=== PATIENT | male | born 1970 | race Hispanic/Latino ===

== ENCOUNTER 2017-03-01 22:36 | Emergency (ER) | payer MEDICARE ==
[2017-03-01 22:45] VITALS: BMI 20.3
--- NOTE | 2017-03-01 23:20 | ED PDOC ---
Arrival/HPI - General Historian: Patient EM Caveat: Acuity of Condition - History of Present Illness Time/Duration: Prior to Arrival Symptom Onset: Other (chronic) Symptom Course: Unchanged <JERROD LARSON - Last Filed: 03/02/17 04:29> <Braeden Alvarez - Last Filed: 03/02/17 07:00> - General Chief Complaint: Psychiatric Evaluation Time Seen by Provider: 03/01/17 22:53 - History of Present Illness Narrative History of Present Illness (Text): PMH delusional disorder, paranoid schizophrenia, depression, [place] [facility] [place] with complaints of excess fatigue for duration of years. Patient states that while he was asleep he was awoken by his sister and EMS; as per patient, since he lives with his parents, his sister regularly visits. Today while visiting she called the police while for him to be admitted to the hospital. Patient states there was no precipitating event leading to his sister calling the police. Patient denies any altercation with sister or parents prior to going to bed. Patient states that he follows monthly with his psychiatrist and his next appointment is tomorrow 03/02. Patient denies chest pain, sob, n/v/d, headache, dizziness. Patient admits to marijuana use daily, denies alcohol consumption. 03/01/17 23:17 (JERROD LARSON) Past Medical History - Provider Review Nursing Documentation Reviewed: Yes - Infectious Disease Hx of Infectious Diseases: None - Tetanus Immunization Tetanus Immunization: Unknown - Cardiac Hx Cardiac Disorders: No - Pulmonary Hx Respiratory Disorders: No - Neurological Hx Neurological Disorder: No - HEENT Hx HEENT Disorder: No - Renal Hx Renal Disorder: No - Endocrine/Metabolic Hx Endocrine Disorders: No - Hematological/Oncological Hx Blood Disorders: No - Integumentary Hx Dermatological Disorder: No - Musculoskeletal/Rheumatological Hx Falls: Yes (fell 08/2014 and hit head, laceration to left ear) - Gastrointestinal Hx Gastrointestinal Disorders: No - Genitourinary/Gynecological Hx Genitourinary Disorders: No - Psychiatric Hx Psychophysiologic Disorder: Yes Hx Bipolar Disorder: Yes Hx Schizophrenia: Yes Hx Substance Use: Yes (marijuana) - Past Surgical History Past Surgical History: No Previous - Anesthesia Hx Anesthesia Reactions: No Hx Malignant Hyperthermia: No - Suicidal Assessment Feels Threatened In Home Enviroment: No <JERROD LARSON - Last Filed: 03/02/17 04:29> Family/Social History Family/Social History: No Known Family HX Smoking Status: Heavy Smoker > 10 Cigarettes Daily Hx Alcohol Use: No Hx Substance Use: Yes (marijuana) Substance used: Marijuana Route: Smoking/Inhalation Hx Substance Use Treatment: No <LARSONJERROD - Last Filed: 03/02/17 04:29> Allergies/Home Meds <JERROD LARSON - Last Filed: 03/02/17 04:29> <Braeden Alvarez - Last Filed: 03/02/17 07:00> Allergies/Adverse Reactions: Allergies No Known Allergies Allergy (Verified 12/03/15 13:09) Home Medications: Home Meds Medication Instructions Recorded Confirmed Diclofenac Sodium [Voltaren] 50 mg PO TID PRN 12/03/15 03/02/17 Haloperidol 10 mg PO BID 12/03/15 03/02/17 Levocetirizine Dihydrochloride 5 mg PO DAILY 12/03/15 03/02/17 [Xyzal] Tizanidine HCl [Zanaflex Capsule] 4 mg PO TID 12/03/15 03/02/17 Review of Systems - Review of Systems Systems not reviewed;Unavailable: Acuity of Condition Constitutional: Normal Eyes: Normal ENT: Normal Respiratory: Normal Cardiovascular: Normal Gastrointestinal: Normal Genitourinary Male: Normal Musculoskeletal: Normal Skin: Normal Neurological: Normal Endocrine: Normal Hemo/Lymphatic: Normal Psychiatric: Normal <JERROD LARSON - Last Filed: 03/02/17 04:29> Physical Exam - Physical Exam Physical Exam Limitations: Clinical Condition Temperature: Afebrile Blood Pressure: Normal Pulse: Regular Respiratory Rate: Normal Appearance: Positive for: Well-Appearing Pain Distress: None Mental Status: Positive for: Alert and Oriented X 3 - Systems Exam Head: Present: Atraumatic, Normocephalic Extroacular Muscles: Present: EOMI Conjunctiva: Present: Normal Mouth: Present: Moist Mucous Membranes Respiratory/Chest: Present: Clear to Auscultation, Good Air Exchange. No: Accessory Muscle Use Cardiovascular: Present: Regular Rate and Rhythm, Normal S1, S2 Abdomen: Present: Normal Bowel Sounds. No: Tenderness, Distention Neurological: Present: CN II-XII Intact Psychiatric: Present: Alert, Oriented x 3 <JERROD LARSON - Last Filed: 03/02/17 04:29> Medical Decision Making <JERROD LARSON - Last Filed: 03/02/17 04:29> - Transfer of Care [place] Dr[place] [facility] [place]Braeden Alvarez - Last Filed: 03/02/17 07:00> ED Course and Treatment: 1. 46 year old male with extensive psych history presenting with complaints of fatigue -Alcohol serum levels -Urinalysis and Urine drug screen -EKG -CXR -CBC and CMP ordered - Will be transferred to [facility] [place], currently awaiting bed 03/01/17 23:23 03/02/17 04:30 (JERROD LARSON) Impression: Pt seen and evaluated with medical scientific officer. Pt, whose past medical history includes delusional disorder, paranoid schizophrenia, and depression, presented complaining of fatigue for the past few years. Aware and agree with HPI, clinical findings, plan, and management. Plan: -- EKG -- CXR -- Labs, alcohol level -- Urinalysis, urine drug screen -- Reassess and disposition 03/01/17 23:44 Pt seen and evaluated by PES screener Mary, Pt will require [facility] screening. 03/02/17 04:40 [facility] PES screener evaluated pt. Pt accepted on transfer to [facility] [place], pending bed availability. (Braeden Alvarez) - Lab Interpretations Lab Results: 03/01/17 23:17 03/01/17 23:17 Lab Results 03/01/17 23:25: Urine Opiates Screen Negative, Urine Methadone Screen Negative, Ur Barbiturates Screen Negative, Ur Phencyclidine Scrn Negative, Ur Amphetamines Screen Positive H, U Benzodiazepines Scrn Negative, U Oth Cocaine Metabols Negative, U Cannabinoids Screen Positive H 03/01/17 23:25: Urine Color Yellow, Urine Appearance Clear, Urine pH 6.5, Ur Specific [place] 1.010, Urine Protein Negative, Urine Glucose (UA) Negative, Urine Ketones Negative, Urine Blood Negative, Urine Nitrate Negative, Urine Bilirubin Negative, Urine Urobilinogen 0.2, Ur Leukocyte Esterase Negative 03/01/17 23:17: Alcohol, Quantitative < 10 03/01/17 23:17: Salicylates < 1 L, Acetaminophen < 10.0 L 03/01/17 23:17: Sodium 141, Potassium 4.1, Chloride 101, Carbon Dioxide 28, Anion Gap 16, BUN 10, Creatinine 0.9, Est GFR ( Amer) > 60, Est GFR (Non- Af Amer) > 60, Random Glucose 115 H, Calcium 9.8, Total Bilirubin 0.6, AST 22, ALT 22, Alkaline Phosphatase 91, Total Protein 8.3, Albumin 4.6, Globulin 3.7, Albumin/Globulin Ratio 1.2 03/01/17 23:17: WBC 12.0 H, RBC 5.40, Hgb 15.6, Hct 44.1, MCV 81.7, MCH 28.9, MCHC 35.4, RDW 13.6, Plt Count 375, MPV 9.6, Gran % 49.4 L, Lymph % (Auto) 40.5 H, [place] % (Auto) 7.6 H, Eos % (Auto) 2.2, Baso % (Auto) 0.3, Gran # 5.93, Lymph # 4.9 H, [place] # 0.9 H, Eos # 0.3, Baso # 0.03 - RAD Interpretation Radiology Orders: 03/01/17 22:59 CHEST PORTABLE [RAD] Stat - PA / [facility] / Resident Statement MD/DO has examined the patient and agrees with the treatment plan. <Braeden Alvarez - Last Filed: 03/02/17 07:00> Disposition/Present on Arrival - Present on Arrival Any Indicators Present on Arrival: No History of DVT/PE: No History of Uncontrolled Diabetes: No Urinary Catheter: No History of Decub. Ulcer: No History Surgical Site Infection Following: None - Disposition Have Diagnosis and Disposition been Completed?: Yes Disposition Time: 04:42 <JERROD LARSON - Last Filed: 03/02/17 04:29> - Present on Arrival Any Indicators Present on Arrival: No - Disposition Have Diagnosis and Disposition been Completed?: Yes <Braeden Alvarez - Last Filed: 03/02/17 07:00> - Disposition Diagnosis: Psychiatric care Disposition: Transfer [facility] Patient Problems: Current Active Problems Problem Status Onset Psychiatric care Acute Condition: FAIR Additional Instructions: chest xray neg pt is medically stable for admission and transfer Forms: [employer] (Thai)
[2017-03-01 23:39] LABS: BASO # 0.03 K/mm3 (0.0-2.0); BASO % 0.3 % (0.0-3.0); EOS # 0.3 (0.0-0.7); EOS % 2.2 % (1.5-5.0); GRAN # 5.93 (1.4-6.5); GRAN % 49.4 % (50.0-68.0); HEMATOCRIT 44.1 % (42.0-52.0); LYMPH # 4.9 (1.2-3.4); LYMPH % 40.5 % (22.0-35.0); MEAN CELL VOLUME 81.7 fl (80.0-105.0); MEAN CORPUSCULAR HEMOGLOBIN 28.9 pg (25.0-35.0); MEAN CORPUSCULAR HGB CONC 35.4 g/dl (31.0-37.0); MEAN PLATELET VOLUME 9.6 fl (7.0-11.0); MONO # 0.9 (0.1-0.6); MONO % 7.6 % (1.0-6.0); RED CELL DISTRIBUTION WIDTH 13.6 % (11.5-14.5)
[2017-03-01 23:40] LABS: PH,URINE 6.5 (4.7-8.0); URINE BILIRUBIN NEGATIVE (NEGATIVE); URINE BLOOD NEGATIVE (NEGATIVE); URINE GLUCOSE (UA) NEGATIVE (NEGATIVE); URINE KETONE NEGATIVE (NEGATIVE); URINE LEUKOCYTE ESTERASE NEGATIVE Leu/uL (NEGATIVE); URINE PROTEIN NEGATIVE mg/dL (<30 mg/dL); URINE UROBILINOGEN 0.2 E.U./dL (<1 E.U./dL)
[2017-03-01 23:44] LABS: ALB/GLOB RATIO 1.2 (1.1-1.8); ALKALINE PHOSPHATASE 91 U/L (38-133); ALT/SGPT 22 U/L (7-56); AST/SGOT 22 U/L (15-59); BILIRUBIN,TOTAL 0.6 mg/dL (0.2-1.3); BLOOD UREA NITROGEN 10 mg/dL (7-21); CALCIUM 9.8 mg/dL (8.4-10.5); CARBON DIOXIDE 28 mmol/L (21-33); CHLORIDE 101 mmol/L (95-110); GFR AFRICAN-AMERICAN > 60; GLUCOSE,RANDOM 115 mg/dL (70-110); POTASSIUM 4.1 mmol/L (3.6-5.0); SODIUM 141 mmol/L (132-148); TOTAL PROTEIN 8.3 g/dL (5.8-8.3)
[2017-03-01 23:45] LABS: URINE APPEARANCE CLEAR (CLEAR); URINE COLOR YELLOW (YELLOW)
--- NOTE | 2017-03-02 08:56 | RAD ---
HISTORY: pes COMPARISON: 12/03/2015 FINDINGS: LUNGS: No active pulmonary disease. PLEURA: No significant pleural effusion identified, no pneumothorax apparent. CARDIOVASCULAR: Normal. OSSEOUS STRUCTURES: No significant abnormalities. VISUALIZED UPPER ABDOMEN: Normal. OTHER FINDINGS: None. IMPRESSION: No active disease.
--- NOTE | 2017-03-02 09:45 | CARD ---
APPROVED REPORT EKG Measurement Heart [id number] <Conclusion> Normal sinus rhythm Incomplete right bundle branch block Borderline ECG
--- NOTE | 2017-03-02 13:30 | ED PDOC ---
Physical Exam Vital Signs Temp Pulse Resp BP Pulse Ox 03/02/17 08:11 97.3 F L 76 16 117/75 98 03/02/17 05:10 91 H 16 122/47 L 96 03/02/17 01:24 93 H 16 126/71 99 03/01/17 23:46 92 H 16 126/83 97 03/01/17 22:51 97.9 F 100 H 18 145/102 H 97 Medical Decision Making ED Course and Treatment: 03/02/17 07:00 Patient signed out to me by Dr. Coleman. [place] [facility] [place]. 03/03/17 10:21 pt endorsed to ngiht shift, pending arrival of ambulance for transfer - Lab Interpretations Lab Results: 03/01/17 23:17 03/01/17 23:17 Lab Results 03/01/17 23:25: Urine Opiates Screen Negative, Urine Methadone Screen Negative, Ur Barbiturates Screen Negative, Ur Phencyclidine Scrn Negative, Ur Amphetamines Screen Positive H, U Benzodiazepines Scrn Negative, U Oth Cocaine Metabols Negative, U Cannabinoids Screen Positive H 03/01/17 23:25: Urine Color Yellow, Urine Appearance Clear, Urine pH 6.5, Ur Specific [place] 1.010, Urine Protein Negative, Urine Glucose (UA) Negative, Urine Ketones Negative, Urine Blood Negative, Urine Nitrate Negative, Urine Bilirubin Negative, Urine Urobilinogen 0.2, Ur Leukocyte Esterase Negative 03/01/17 23:17: Alcohol, Quantitative < 10 03/01/17 23:17: Salicylates < 1 L, Acetaminophen < 10.0 L 03/01/17 23:17: Sodium 141, Potassium 4.1, Chloride 101, Carbon Dioxide 28, Anion Gap 16, BUN 10, Creatinine 0.9, Est GFR ( Amer) > 60, Est GFR (Non- Af Amer) > 60, Random Glucose 115 H, Calcium 9.8, Total Bilirubin 0.6, AST 22, ALT 22, Alkaline Phosphatase 91, Total Protein 8.3, Albumin 4.6, Globulin 3.7, Albumin/Globulin Ratio 1.2 03/01/17 23:17: WBC 12.0 H, RBC 5.40, Hgb 15.6, Hct 44.1, MCV 81.7, MCH 28.9, MCHC 35.4, RDW 13.6, Plt Count 375, MPV 9.6, Gran % 49.4 L, Lymph % (Auto) 40.5 H, [place] % (Auto) 7.6 H, Eos % (Auto) 2.2, Baso % (Auto) 0.3, Gran # 5.93, Lymph # 4.9 H, [place] # 0.9 H, Eos # 0.3, Baso # 0.03 - RAD Interpretation Radiology Orders: 03/01/17 22:59 CHEST PORTABLE [RAD] Stat - Medication Orders Current Medication Orders: Benztropine Mesylate (Cogentin) 0.5 mg PO TID STEPHANE Last Admin: 03/02/17 11:14 Dose: 0.5 mg Haloperidol (Haldol) 5 mg PO TID STEPHANE PRN Reason: Protocol Last Admin: 03/02/17 11:14 Dose: 5 mg Trazodone HCl (Desyrel) 50 mg PO HS PRN PRN Reason: Insomnia - Scribe Statement The provider has reviewed the documentation as recorded by the Adrian Romero Provider Scribe Attestation: All medical record entries made by the Scribe were at my direction and personally dictated by me. I have reviewed the chart and agree that the record accurately reflects my personal performance of the history, physical exam, medical decision making, and the department course for this patient. I have also personally directed, reviewed, and agree with the discharge instructions and disposition. Disposition/Present on Arrival - Present on Arrival Any Indicators Present on Arrival: No History of DVT/PE: No History of Uncontrolled Diabetes: No Urinary Catheter: No History of Decub. Ulcer: No History Surgical Site Infection Following: None - Disposition Have Diagnosis and Disposition been Completed?: Yes Diagnosis: Schizophrenia Disposition: [place] [facility] [place] Time: 07:00 Condition: FAIR Additional Instructions: chest xray neg pt is medically stable for admission and transfer Forms: [employer] (Lebanese)
[2017-03-02 16:23] VITALS: TEMP 99.2
[2017-03-02 19:13] VITALS: BP 110/78; PULSE 68; RESP 18; O2SAT 97
--- NOTE | 2017-03-03 02:39 | CON ---
HISTORY OF PRESENT ILLNESS: The patient is a 46-year-old male with a reported history of paranoid schizophrenia. The patient also has history of noncompliance with medication and followup appointments. The patient was brought in by his family because the patient was having negative symptoms because of schizophrenia, was withdrawn, not eating and not taking his medication. Case was discussed with Dr. Murrell, the patient's private psychiatrist and it was recommended screening. [facility] evaluated the patient in the emergency room. At the present moment, the patient is waiting for bed to be available at [facility] under involuntary commitment. The patient was seen and examined today. The patient presented withdrawn, poor personal hygiene, and oddly related to this curriculum writer. The patient says he is not taking his medications. He has a lot of somatic complaints for what patient's family was concerned. At present moment, the patient reported that he has auditory hallucinations. The patient was trying to minimize his symptoms. The patient has had multiple admissions to the psychiatric inpatient unit here at [place], as well as [facility]. Most recent in this facility was in December [address] Murrell's services. The patient was stabilized on haloperidol 10 mg twice a day and trazodone 50 mg at nighttime. The patient was submitted a 48-hour notice and was discharged against medical advice. PHYSICAL EXAMINATION VITAL SIGNS: Reviewed. Temperature is 97.3, pulse is 76, blood pressure 117/75, respirations 16, oxygen saturation is 98. MEDICATIONS: Reviewed. None was given to the patient, but this curriculum writer will resume Cogentin 0.5 mg three times a day, Haldol 5 mg three times a day, and trazodone 50 mg at the nighttime as needed for insomnia. LABORATORY DATA: Reviewed. WBC 12.0, granulocytes are 5.93. Chemistry is reviewed. Urine is reviewed. Toxicology was positive for amphetamines, as well as cannabis. On amphetamines, the patient was not able to provide history if he is taking any stimulants or not, but admitted that he was smoking cannabis on a daily basis. Case was discussed with emergency room physician Dr. Lagunas, as well as nurse, Viky. The patient is currently on one-to-one. MENTAL STATUS EXAMINATION: The patient appears to be alert, withdrawn, poor personal hygiene, staring at this curriculum writer, inappropriate smile. Mood is described as "fine, I want to go home". Affect was constricted, but reactive, mood incongruent. Thought process disorganized. Thought content: The patient reported to have auditory hallucinations, denied command-type hallucinations. The patient was not eating and has negative symptoms of schizophrenia. Insight and judgment are impaired. Impulses are well controlled. IMPRESSION: Per history, the patient has paranoid schizophrenia, chronic, with acute exacerbation. PLAN: At the present moment, the patient is waiting for bed to be available at [facility] and meanwhile, while the patient will be in the emergency room, this curriculum writer will resume medications of haloperidol 5 mg three times a day, Cogentin 0.5 mg three times a day for EPS, trazodone 50 mg at the nighttime as needed for insomnia. All of the medications the patient has tolerated well in the past and willing to take now. Staff was educated to make sure that the patient eats. Meanwhile, the patient will be seen by this curriculum writer on a daily basis and advise accordingly. Thank you very much for letting me to participate in the care of your patient. Krystal Lindo MD
== END 2017-03-02 19:33 | disposition short-term general hospital (02) ==
LOC: ED 22:36
DX: Z00.8 Encounter for other general examination (principal); F20.0 Paranoid schizophrenia
CPT/HCPCS: 71010; 80053; 81003; 85025; 90791; 93005; 99285; G0480

== ENCOUNTER 2017-06-09 13:04 | Emergency (ER) | payer MEDICARE ==
[2017-06-09 13:04] VITALS: BMI 20.3
--- NOTE | 2017-06-09 13:13 | ED PDOC ---
Arrival/HPI - General Historian: Patient - History of Present Illness Time/Duration: Prior to Arrival Context: Home <Raffaele Duran - Last Filed: 06/09/17 17:49> <Fredy Patel - Last Filed: 06/10/17 03:45> - General Time Seen by Provider: 06/09/17 13:13 - History of Present Illness Narrative History of Present Illness (Text): 06/09/17 13:13 This 46 yo male PMH delusional disorder, paranoid schizophrenia, depression, presents to [facility] ED for PES evaluation. 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 Her sister is claiming he was destroying the apartment. He denies that allegation. He denies other somatic complains, although he admits hearing voices, last time was 2 days ago, and he take an injection every 3 weeks to manage that. (Raffaele Duran) Past Medical History - Provider Review Nursing Documentation Reviewed: Yes - Infectious Disease Hx of Infectious Diseases: None - Tetanus Immunization Tetanus Immunization: Unknown - Cardiac Hx Cardiac Disorders: No - Pulmonary Hx Respiratory Disorders: No - Neurological Hx Neurological Disorder: No - HEENT Hx HEENT Disorder: No - Renal Hx Renal Disorder: No - Endocrine/Metabolic Hx Endocrine Disorders: No - Hematological/Oncological Hx Blood Disorders: No - Integumentary Hx Dermatological Disorder: No - Musculoskeletal/Rheumatological Hx Falls: Yes (fell 08/2014 and hit head, laceration to left ear) - Gastrointestinal Hx Gastrointestinal Disorders: No - Genitourinary/Gynecological Hx Genitourinary Disorders: No - Psychiatric Hx Psychophysiologic Disorder: Yes Hx Bipolar Disorder: Yes Hx Schizophrenia: Yes Hx Substance Use: Yes (marijuana) - Past Surgical History Past Surgical History: No Previous - Anesthesia Hx Anesthesia Reactions: No Hx Malignant Hyperthermia: No - Suicidal Assessment Feels Threatened In Home Enviroment: No <Raffaele Duran - Last Filed: 06/09/17 17:49> Family/Social History - Physician Review Nursing Documentation Reviewed: Yes Family/Social History: Other (noncontributory) Smoking Status: Heavy Smoker > 10 Cigarettes Daily Hx Alcohol Use: No Hx Substance Use: Yes (marijuana) Substance used: Marijuana Hx Substance Use Treatment: No <Raffaele Duran - Last Filed: 06/09/17 17:49> Allergies/Home Meds <Raffaele Duran - Last Filed: 06/09/17 17:49> <AmandaFredy - Last Filed: 06/10/17 03:45> Allergies/Adverse Reactions: Allergies No Known Allergies Allergy (Verified 06/09/17 13:15) Home Medications: Home Meds Medication Instructions Recorded Confirmed Unobtainable 06/09/17 06/09/17 Review of Systems - Review of Systems Constitutional: Normal. absent: Fatigue, Weight Change, Fevers Eyes: Normal ENT: Normal Respiratory: Normal Cardiovascular: Normal Gastrointestinal: Normal Genitourinary Male: Normal Musculoskeletal: Normal Skin: Normal Neurological: Normal Endocrine: Normal Hemo/Lymphatic: Normal Psychiatric: Anxiety, Other (see hpi). absent: Depression, Suicidal Ideation <Raffaele Duran - Last Filed: 06/09/17 17:49> Physical Exam Temperature: Afebrile Blood Pressure: Normal Pulse: Regular Respiratory Rate: Normal Appearance: Positive for: Well-Appearing, Non-Toxic, Comfortable Pain Distress: None Mental Status: Positive for: Alert and Oriented X 3 - Systems Exam Head: Present: Atraumatic, Normocephalic Pupils: Present: PERRL Extroacular Muscles: Present: EOMI Conjunctiva: Present: Normal Mouth: Present: Moist Mucous Membranes Neck: Present: Normal Range of Motion Respiratory/Chest: Present: Clear to Auscultation, Good Air Exchange. No: Respiratory Distress, Accessory Muscle Use Cardiovascular: Present: Regular Rate and Rhythm, Normal S1, S2. No: Murmurs Abdomen: Present: Normal Bowel Sounds. No: Tenderness, Distention, Peritoneal Signs Back: Present: Normal Inspection Upper Extremity: Present: Normal Inspection. No: Cyanosis, Edema Lower Extremity: Present: Normal Inspection. No: Edema Neurological: Present: GCS=15, CN II-XII Intact, Speech Normal Skin: Present: Warm, Dry, Normal Color. No: Rashes Psychiatric: Present: Alert, Oriented x 3, Hallucinations (auditory). No: Suicidal Ideation, Homicidal Ideation, Delusional, Intoxicated <Raffaele Duran - Last Filed: 06/09/17 17:49> Vital Signs Temp Pulse Resp BP Pulse Ox 06/10/17 02:00 98.2 F 84 18 126/72 99 06/10/17 00:00 88 16 124/72 100 06/09/17 22:00 80 14 114/68 99 06/09/17 20:00 86 06/09/17 18:57 88 18 118/86 100 06/09/17 15:34 89 18 121/74 100 06/09/17 13:04 98.8 F 100 H 19 119/87 99 Medical Decision Making - EKG Interpretation Interpreted by ED Physician: Yes (Sinus Tachycardia @ [address] changes.) Type: 12 lead EKG Comparison: No previous EKG avail. <Raffaele Duran - Last Filed: 06/09/17 17:49> <Fredy Patel - Last Filed: 06/10/17 03:45> ED Course and Treatment: 06/09/17 16:49 Charla from PES stated she spoke with psychiatrist, and they feel patient needs to be committed at [facility]. Patient is medically clear for Psychiatric admission. (Raffaele Duran) 06/10/17 03:42 Pt seen and evaluated by [facility] PES screener, who discussed case with psychiatrist. Pt accepted on transfer to [facility] by Dr. Cates. (Fredy Patel) - Lab Interpretations Lab Results: 06/09/17 13:23 06/09/17 13:23 Lab Results 06/09/17 15:57: Urine Opiates Screen Negative, Urine Methadone Screen Negative, Ur Barbiturates Screen Negative, Ur Phencyclidine Scrn Negative, Ur Amphetamines Screen Positive H, U Benzodiazepines Scrn Negative, U Oth Cocaine Metabols Negative, U Cannabinoids Screen Positive H 06/09/17 15:15: Urine Color Yellow, Urine Appearance Clear, Urine pH 6.0, Ur Specific [place] 1.020, Urine Protein 100 H, Urine Glucose (UA) Negative, Urine Ketones Negative, Urine Blood Negative, Urine Nitrate Negative, Urine Bilirubin Negative, Urine Urobilinogen 0.2, Ur Leukocyte Esterase Negative, Urine RBC 0 - 2, Urine WBC 1 - 3, Ur Epithelial Cells 0 - 2, Amorphous Sediment Few, Urine Bacteria Many, Hyaline Casts 2 - 5, Fine Granular Casts 2 - 5, Coarse Granular Casts Trace H, Urine Other Uyeast 06/09/17 13:23: Alcohol, Quantitative < 10 06/09/17 13:23: Salicylates < 1 L, Acetaminophen < 10.0 L 06/09/17 13:23: Sodium 139, Potassium 3.6, Chloride 101, Carbon Dioxide 28, Anion Gap 15, BUN 13, Creatinine 1.0, Est GFR ( Amer) > 60, Est GFR (Non- Af Amer) > 60, Random Glucose 121 H, Calcium 10.0, Total Bilirubin 0.3, AST 22, ALT 21, Alkaline Phosphatase 74, Total Protein 8.4 H, Albumin 4.3, Globulin 4.1 , Albumin/Globulin Ratio 1.1 06/09/17 13:23: WBC 10.3, RBC 5.46, Hgb 15.7, Hct 45.6, MCV 83.5, MCH 28.8, MCHC 34.4, RDW 14.9 H, Plt Count 334, MPV 9.6, Gran % 33.3 L, Lymph % (Auto) 53.6 H, [place] % (Auto) 9.4 H, Eos % (Auto) 3.4, Baso % (Auto) 0.3, Gran # 3.43, Lymph # 5.5 H, [place] # 1.0 H, Eos # 0.4, Baso # 0.03 - RAD Interpretation Narrative RAD Interpretations (Text): 06/09/17 15:10 Chest X-rays: NAD (Raffaele Duran) Radiology Orders: 06/09/17 13:19 CHEST PORTABLE [RAD] Stat - PA / DUTY OFFICER / Resident Statement YULIANA has reviewed & agrees with the documentation as recorded. YULIANA has examined the patient and agrees with the treatment plan. <Fredy Patel - Last Filed: 06/10/17 03:45> Disposition/Present on Arrival - Present on Arrival History of DVT/PE: No History of Uncontrolled Diabetes: No Urinary Catheter: No History Surgical Site Infection Following: None <Raffaele Duran - Last Filed: 06/09/17 17:49> - Present on Arrival Any Indicators Present on Arrival: No History of DVT/PE: No History of Uncontrolled Diabetes: No Urinary Catheter: No History of Decub. Ulcer: No History Surgical Site Infection Following: None - Disposition Have Diagnosis and Disposition been Completed?: Yes Disposition Time: 03:45 <Fredy Patel - Last Filed: 06/10/17 03:45> - Disposition Diagnosis: Schizophrenia Disposition: Transfer [facility] Condition: STABLE Referrals: Woodrow Gonzales MD [Primary Care Provider] - Follow up with primary
[2017-06-09 13:47] LABS: BASO # 0.03 K/mm3 (0.0-2.0); BASO % 0.3 % (0.0-3.0); EOS # 0.4 (0.0-0.7); EOS % 3.4 % (1.5-5.0); GRAN # 3.43 (1.4-6.5); GRAN % 33.3 % (50.0-68.0); HEMATOCRIT 45.6 % (42.0-52.0); LYMPH # 5.5 (1.2-3.4); LYMPH % 53.6 % (22.0-35.0); MEAN CELL VOLUME 83.5 fl (80.0-105.0); MEAN CORPUSCULAR HEMOGLOBIN 28.8 pg (25.0-35.0); MEAN CORPUSCULAR HGB CONC 34.4 g/dl (31.0-37.0); MEAN PLATELET VOLUME 9.6 fl (7.0-11.0); MONO % 9.4 % (1.0-6.0); RED CELL DISTRIBUTION WIDTH 14.9 % (11.5-14.5); WHITE BLOOD COUNT 10.3 10^3/ul (4.5-11.0)
--- NOTE | 2017-06-09 13:49 | RAD ---
HISTORY: pes eval COMPARISON: 03/01/2017 FINDINGS: LUNGS: No active pulmonary disease. PLEURA: No significant pleural effusion identified, no pneumothorax apparent. CARDIOVASCULAR: Normal. OSSEOUS STRUCTURES: No significant abnormalities. VISUALIZED UPPER ABDOMEN: Normal. OTHER FINDINGS: None. IMPRESSION: No active disease.
[2017-06-09 13:57] LABS: ALB/GLOB RATIO 1.1 (1.1-1.8); ALKALINE PHOSPHATASE 74 U/L (38-126); ALT/SGPT 21 U/L (7-56); AST/SGOT 22 U/L (17-59); BILIRUBIN,TOTAL 0.3 mg/dL (0.2-1.3); BLOOD UREA NITROGEN 13 mg/dL (7-21); CARBON DIOXIDE 28 mmol/L (21-33); CHLORIDE 101 mmol/L (98-107); GFR AFRICAN-AMERICAN > 60; GLUCOSE,RANDOM 121 mg/dL (70-110); POTASSIUM 3.6 mmol/L (3.6-5.0); SODIUM 139 mmol/L (132-148); TOTAL PROTEIN 8.4 g/dL (5.8-8.3)
[2017-06-09 15:31] LABS: URINE APPEARANCE CLEAR (CLEAR); URINE BILIRUBIN NEGATIVE (NEGATIVE); URINE BLOOD NEGATIVE (NEGATIVE); URINE COLOR YELLOW (YELLOW); URINE GLUCOSE (UA) NEGATIVE (NEGATIVE); URINE KETONE NEGATIVE (NEGATIVE); URINE LEUKOCYTE ESTERASE NEGATIVE Leu/uL (NEGATIVE); URINE PROTEIN 100 mg/dL (<30 mg/dL); URINE UROBILINOGEN 0.2 E.U./dL (<1 E.U./dL)
[2017-06-09 15:34] VITALS: RESP 18
[2017-06-09 15:42] LABS: URINE BACTERIA MANY (NEG); URINE EPITHELIAL CELLS 0 - 2 /hpf (0-5); URINE RBC 0 - 2 /hpf (0-2)
[2017-06-09 15:44] LABS: URINE AMORPHOUS SEDIMENT FEW
--- NOTE | 2017-06-09 16:15 | CARD ---
APPROVED REPORT EKG Measurement Heart [id number] <Conclusion> Sinus tachycardia Otherwise normal ECG
[2017-06-10 03:23] VITALS: BP 126/72; PULSE 84; TEMP 98.2; O2SAT 99
== END 2017-06-10 03:00 | disposition short-term general hospital (02) ==
LOC: ED 13:04
DX: F20.9 Schizophrenia, unspecified (principal); F17.210 Nicotine dependence, cigarettes, uncomplicated
CPT/HCPCS: 71010; 80053; 81001; 85025; 93005; 99285; G0480